=== PATIENT | male | born 1955 | race Caucasian/White ===

== ENCOUNTER 2021-05-21 07:27 | Day surgery (SDC) | payer OTHER | END 2021-05-21 11:25 | disposition home or self-care (01) | LOC: CSHSDC/OP 07:27 | PROVIDERS: ATTEND Nurse Practitioner Acute Care | DX: C73 Malignant neoplasm of thyroid gland (principal) | CPT/HCPCS: 96360; 96361 ==

== ENCOUNTER 2021-05-23 07:32 | Day surgery (SDC) | payer OTHER ==
[2021-05-23 11:29] LABS: Phosphorus 2.5 mg/dL (2.3-4.7)
[2021-05-23 11:33] LABS: ALT (SGPT) 15 U/L (8-55); AST (SGOT) 18 U/L (5-34); Albumin 3.5 g/dL (3.4-4.8); Alkaline Phosphatase 64 U/L (40-110); Anion Gap 10 mmol/L (10-20); BUN (Urea Nitrogen) 60 mg/dL (8.4-25.7); Bilirubin, Total 1.3 mg/dL (0.2-1.2); Calc. Creatinine Clearance 0 mL/min (70-130); Calcium 8.6 mg/dL (7.8-10.44); Carbon Dioxide 25 mmol/L (23-31); Chloride 107 mmol/L (98-107); Globulin 2.7 g/dL (2.4-3.5); Glucose 98 mg/dL (80-115); Magnesium 2.2 mg/dL (1.6-2.6); Protein, Total 6.2 g/dL (5.8-8.1); Sodium 138 mmol/L (136-145)
== END 2021-05-23 11:10 | disposition home or self-care (01) ==
LOC: CSHSDC/OP 07:32
PROVIDERS: ATTEND Nurse Practitioner Acute Care
DX: C73 Malignant neoplasm of thyroid gland (principal)
CPT/HCPCS: 80053; 82248; 83615; 83735; 84100; 96360; 96361

== ENCOUNTER → 2021-06-03 11:18 | Emergency (ER) | payer OTHER ==
[~2021-06-03 11:18] MED LIST: Cefepime 2 GM VIAL ONE; Vancomycin 1.5 GRAM/300 ML BAG 1.5 GM in Premix Bag 1 BAG IVPB SCH
[2021-06-03 12:50] LABS: Hemoglobin 11.8 g/dL (13.5-17.5); Mean Corpuscular HGB CONC 33.1 g/dL (32.0-36.0); Mean Corpuscular Hemoglobin 28.1 pg (27.0-33.0); Mean Platelet Volume 9.3 fl (7.4-10.4); Platelet Count 292 10x3/uL (150-450); RBC Distribution Width 15.4 % (11.5-14.5); White Blood Cell (WBC) Count 15.4 10x3/uL (3.5-10.5)
[2021-06-03 12:54] LABS: MDiff Complete? YES
[2021-06-03 12:56] LABS: ALT (SGPT) 43 U/L (8-55); AST (SGOT) 25 U/L (5-34); Albumin 3.6 g/dL (3.4-4.8); Alkaline Phosphatase 82 U/L (40-110); Anion Gap 13 mmol/L (10-20); BUN (Urea Nitrogen) 53 mg/dL (8.4-25.7); Bilirubin, Total 0.6 mg/dL (0.2-1.2); CK (CPK) 50 U/L (30-200); CRP (Inflammatory) 2.79 mg/dL (= or < 0.5); Calc. Creatinine Clearance 0 mL/min (70-130); Calcium 8.4 mg/dL (7.8-10.44); Carbon Dioxide 28 mmol/L (23-31); Chloride 106 mmol/L (98-107); Globulin 3.2 g/dL (2.4-3.5); Glucose 153 mg/dL (80-115); Potassium 4.3 mmol/L (3.5-5.1); Protein, Total 6.8 g/dL (5.8-8.1); Sodium 143 mmol/L (136-145)
[2021-06-03 13:22] LABS: Eosinophils 2 % (0-10); Lymphocytes 33 % (21-51); Monocytes 5 % (0-10); Neutrophil 60 % (42-75)
[2021-06-03 13:24] LABS: Platelet Morphology Comment Appears Adequate; RBC Morphology Normal
[2021-06-03 14:14] LABS: Bilirubin Neg (Negative); Blood, Urine 25 (Negative); Clarity Clear (Clear); Glucose, Urine (Dipstick) Normal (Negative); Ketone, Urine Negative (Negative); Leukocyte Negative (Negative); Nitrite Negative (Negative); Protein, Urine (Dipstick) 100 mg/dl (Neg-Trace); Urobilinogen Normal mg/dL (Less than 2); pH, Urine 6.5 (5.0-9.0)
[2021-06-03 14:23] LABS: Bacteria/HPF None Seen HPF (None Seen); Squamous Epithelial 0-3 HPF (0-3); WBC/HPF 0-3 HPF (0-3)
[2021-06-03 15:00] LABS: SARS-CoV-2 NAA Rapid Test Not Detected (NotDetected)
== END | disposition home or self-care (01) ==
LOC: CSHERS 11:18
DX: L03.114 Cellulitis of left upper limb (principal); L03.115 Cellulitis of right lower limb; Z20.822 Contact with and (suspected) exposure to COVID-19
CPT/HCPCS: 36415; 80053; 81003; 81015; 82550; 83605; 85025; 86140; 87040; 87086; 93005; 96365; 96366; 96367; J0692; J3370; U0002

== ENCOUNTER 2021-06-18 12:49 | Outpatient (CLI) | payer BC | END 2021-06-18 12:50 | disposition home or self-care (01) | LOC: CSHCT 12:49 | PROVIDERS: ATTEND Nurse Practitioner Acute Care | DX: C73 Malignant neoplasm of thyroid gland (principal); M41.9 Scoliosis, unspecified; M47.814 Spondylosis without myelopathy or radiculopathy, thoracic region; R93.7 Abnormal findings on diagnostic imaging of other parts of musculoskeletal system; M89.9 Disorder of bone, unspecified; R59.0 Localized enlarged lymph nodes; M43.26 Fusion of spine, lumbar region; M48.061 Spinal stenosis, lumbar region without neurogenic claudication; M48.07 Spinal stenosis, lumbosacral region; M47.812 Spondylosis without myelopathy or radiculopathy, cervical region; M48.02 Spinal stenosis, cervical region; G95.20 Unspecified cord compression; G95.89 Other specified diseases of spinal cord; J34.89 Other specified disorders of nose and nasal sinuses; C78.7 Secondary malignant neoplasm of liver and intrahepatic bile duct; N28.1 Cyst of kidney, acquired; K57.90 Diverticulosis of intestine, part unspecified, without perforation or abscess without bleeding; C77.2 Secondary and unspecified malignant neoplasm of intra-abdominal lymph nodes | CPT/HCPCS: 70490; 71250; 72141; 72146; 72148; 74176; 74181 ==

== ENCOUNTER 2021-07-08 09:07 | Outpatient (CLI) | payer BC | END 2021-07-08 09:08 | disposition home or self-care (01) | LOC: CSHMRI 09:07 | PROVIDERS: ATTEND Surgery Surgery of the Hand | DX: M84.445A Pathological fracture, left finger(s), initial encounter for fracture (principal); M89.9 Disorder of bone, unspecified ==

== ENCOUNTER 2021-07-22 14:11 | Outpatient (CLI) | payer BC ==
[2021-07-22 15:14] LABS: Hemoglobin 10.5 g/dL (13.5-17.5); Mean Corpuscular HGB CONC 31.6 g/dL (32.0-36.0); Mean Corpuscular Hemoglobin 28.5 pg (27.0-33.0); Mean Corpuscular Volume 90.2 fl (81.2-95.1); Mean Platelet Volume 10.5 fl (7.4-10.4); Platelet Count 172 10x3/uL (150-450); RBC Distribution Width 16.4 % (11.5-14.5); Red Blood Cell (RBC) Count 3.68 10x6/uL (4.32-5.72); White Blood Cell (WBC) Count 8.7 10x3/uL (3.5-10.5)
[2021-07-22 15:40] LABS: Anion Gap 16 mmol/L (10-20); BUN (Urea Nitrogen) 45 mg/dL (8.4-25.7); Calc. Creatinine Clearance 0 mL/min (70-130); Calcium 8.5 mg/dL (7.8-10.44); Carbon Dioxide 22 mmol/L (23-31); Chloride 108 mmol/L (98-107); Glucose 153 mg/dL (80-115); Potassium 3.9 mmol/L (3.5-5.1); Sodium 142 mmol/L (136-145)
[2021-07-23 00:04] LABS: SARS-CoV-2 PCR by NAA Not Detected (NotDetected)
== END 2021-07-22 14:12 | disposition home or self-care (01) ==
LOC: CSHLAB 14:11
PROVIDERS: ATTEND Surgery Surgery of the Hand
DX: Z01.812 Encounter for preprocedural laboratory examination (principal); Z20.822 Contact with and (suspected) exposure to COVID-19; M84.445A Pathological fracture, left finger(s), initial encounter for fracture
CPT/HCPCS: 80048; 85027; U0003; U0005

== ENCOUNTER 2021-07-24 10:34 | Day surgery (SDC) | payer BC ==
[2021-07-23 09:25] VITALS: BMI 25.1
[2021-07-24] MEDS ORDERED: Fentanyl 100 MCG/2 ML VIAL ONE (12:18)
[2021-07-24] MEDS ORDERED: PROPOFOL 20 ML ONE (12:18)
[2021-07-24] MEDS ORDERED: Ondansetron PF 4 MG/2 ML Vial ONE (12:18)
[2021-07-24] MEDS ORDERED: PHENYLEPHRINE-NS 100 MCG/ML 10 ML SYRINGE ONE (12:18)
[2021-07-24] MEDS ORDERED: Glycopyrrolate 0.2 MG/ML 5 ML SYRINGE ONE (12:18)
[2021-07-24] MEDS ORDERED: Dexamethasone 4 mg/ml Vial ONE (12:18)
[2021-07-24] MEDS ORDERED: Lidocaine 1% PF 5 ML VIAL ONE (12:18)
[2021-07-24] MEDS ORDERED: Lidocaine 1% MPF 2 ML VIAL ONE (12:38)
[2021-07-24] MEDS ORDERED: Lidocaine 1% (PF) 30 ML VIAL ONE (12:39)
[2021-07-24] MEDS ORDERED: Bupivacaine 0.25% HCL 30 ML VIAL ONE (12:39)
[2021-07-24] MEDS ORDERED: Neomycin-Polymyxin 1 ML AMP ONE (12:40)
[2021-07-24] MEDS ORDERED: ceFAZolin 2 GM/Dextrose 50 ML IVPB ONE (12:49)
[2021-07-24] MEDS ORDERED: ePHEDrine Sulfate 50 MG/10 ML VIAL ONE (13:31)
== END 2021-07-24 14:30 | disposition home or self-care (01) ==
LOC: CSHSDC 10:34
PROVIDERS: ATTEND Surgery Surgery of the Hand
PROC: 0PBV0ZX Excision of Left Finger Phalanx, Open Approach, Diagnostic (ICD-10-PCS; principal; 2021-07-24)
DX: M84.445A Pathological fracture, left finger(s), initial encounter for fracture (principal); Z79.899 Other long term (current) drug therapy; Z79.01 Long term (current) use of anticoagulants; Z87.891 Personal history of nicotine dependence
CPT/HCPCS: 88305; 88307; 88311; 88342; J0690; J1100; J2001; J2405; J2704; J3010; S0020

== ENCOUNTER 2021-12-12 15:07 | Emergency (ER) | payer BC ==
[2021-12-12 16:22] LABS: Hemoglobin 13.8 g/dL (13.5-17.5); Mean Corpuscular HGB CONC 33.3 g/dL (32.0-36.0); Mean Corpuscular Hemoglobin 27.4 pg (27.0-33.0); Mean Corpuscular Volume 82.3 fl (81.2-95.1); Mean Platelet Volume 10.1 fl (7.4-10.4); Platelet Count 286 10x3/uL (150-450); RBC Distribution Width 16.6 % (11.5-14.5); Red Blood Cell (RBC) Count 5.04 10x6/uL (4.32-5.72); White Blood Cell (WBC) Count 17.6 10x3/uL (3.5-10.5)
[2021-12-12 16:32] LABS: ALT (SGPT) 40 U/L (8-55); AST (SGOT) 34 U/L (5-34); Albumin 3.8 g/dL (3.4-4.8); Alkaline Phosphatase 106 U/L (40-110); Anion Gap 22 mmol/L (10-20); Bilirubin, Total 0.9 mg/dL (0.2-1.2); Calc. Creatinine Clearance 0 mL/min (70-130); Calcium 8.8 mg/dL (7.8-10.44); Carbon Dioxide 20 mmol/L (23-31); Chloride 100 mmol/L (98-107); Estimated GFR 8; Globulin 3.1 g/dL (2.4-3.5); Glucose 139 mg/dL (80-115); Magnesium 2.1 mg/dL (1.6-2.6); Protein, Total 6.9 g/dL (5.8-8.1); Sodium 137 mmol/L (136-145)
[2021-12-12 16:34] LABS: MDiff Complete? YES
[2021-12-12 16:41] LABS: BUN (Urea Nitrogen) 124 mg/dL (8.4-25.7)
[2021-12-12 16:45] LABS: Phosphorus 5.5 mg/dL (2.3-4.7)
[2021-12-12 17:06] LABS: Bilirubin Neg (Negative); Blood, Urine 25 (Negative); Clarity Clear (Clear); Glucose, Urine (Dipstick) Normal (Negative); Ketone, Urine Negative (Negative); Leukocyte 25 (Negative); Nitrite Negative (Negative); Protein, Urine (Dipstick) 30 mg/dl (Neg-Trace); Specific Gravity, Urine 1.015 (1.002-1.036); Urobilinogen Normal mg/dL (Less than 2)
[2021-12-12 17:13] LABS: Squamous Epithelial 0-3 HPF (0-3)
[2021-12-12 17:15] LABS: Bacteria/HPF 2+ HPF (None Seen); Transitional Epithelial 0-3 HPF (None Seen)
[2021-12-12 17:17] LABS: Mucous/LPF 2+ LPF (<2+)
[2021-12-12] MEDS ORDERED: Sodium Bicarbonate 50 MEQ in Sodium Chloride 0.45% 1,000 ML IV SCH (17:30)
[2021-12-12 17:31] LABS: Uric Acid 12.8 mg/dL (3.5-7.2)
[2021-12-12 18:05] LABS: SARS-CoV-2 NAA Rapid Test Not Detected (NotDetected)
[2021-12-12 18:13] LABS: Eosinophils 1 % (0-10); Lymphocytes 33 % (21-51); Monocytes 3 % (0-10); Neutrophil 63 % (42-75)
[2021-12-12 18:15] LABS: Platelet Morphology Comment Appears Adequate
[2021-12-12 18:16] LABS: Macrocytosis SLIGHT = 6-15 cells (100X) (0-5/hpf)
[2021-12-12] MEDS ORDERED: Bisacodyl 5 MG TAB PO PRN (22:46)
[2021-12-12] MEDS ORDERED: Acetaminophen 325 MG TAB PO PRN (22:46)
[2021-12-12] MEDS ORDERED: Senokot S 8.6-50 MG TAB PO PRN (22:46)
[2021-12-12] MEDS ORDERED: Ondansetron PF 4 MG/2 ML Vial IVP PRN (22:46)
[2021-12-12] MEDS ORDERED: HYDROcodone/Acetaminophen 5/325 mg Tablet PO PRN (22:46)
[2021-12-12] MEDS ORDERED: Calcium Carbonate 500 MG ChewTAB PO PRN (22:46)
[2021-12-12] MEDS ORDERED: Sodium Bicarbonate 75 MEQ in Sodium Chloride 0.45% 1,000 ML IV SCH (23:15)
== END 2021-12-12 21:28 | disposition short-term general hospital (02) ==
LOC: CSHERS 15:07
DX: N17.9 Acute kidney failure, unspecified (principal); E88.3 Tumor lysis syndrome; I45.10 Unspecified right bundle-branch block; I10 Essential (primary) hypertension; Z20.822 Contact with and (suspected) exposure to COVID-19; Z85.850 Personal history of malignant neoplasm of thyroid; Z79.899 Other long term (current) drug therapy
CPT/HCPCS: 36415; 80053; 81003; 81015; 82550; 83605; 83735; 84100; 84300; 84484; 84550; 85025; 93005; 96365; 96366; U0002